=== PATIENT | female | born 1980 | race Asian ===

== ENCOUNTER 2021-01-22 17:39 | Emergency (ER) | payer SELFPAY ==
[2021-01-22 17:42] VITALS: BP 128/98; PULSE 92; RESP 16; TEMP 37; O2SAT 100
[2021-01-22 18:05] LABS: Basophils Absolute Auto 0.1 K/mm3 (0.0-0.1); Basophils Percent Auto 0.5 % (0.2-1.2); Eosinophils Absolute Auto 0.6 K/mm3 (0-0.3); Eosinophils Percent Auto 5.6 % (0-4.4); Hematocrit 40.3 % (37.0-47.0); Hemoglobin 13.6 g/dL (12.0-15.0); Immature Granulocyte Absolute 0.03 K/mm3 (0.00-0.031); Immature Granulocyte Percent A 0.3 % (0-0.5); Lymphocytes Absolute Auto 3.31 K/mm3 (0.9-3.2); Lymphocytes Percent Auto 32.8 % (18.3-44.2); Mean Corpuscular HGB Conc 33.7 g/dl (32-36); Mean Corpuscular Hemoglobin 29.4 pg (26-34); Mean Corpuscular Volume 87.2 fl (80-100); Mean Platelet Volume 9.3 fl (7.4-10.4); Monocytes Absolute Auto 0.7 K/mm3 (0.1-0.6); Monocytes Percent Auto 6.8 % (2.6-8.5); Neutrophils Absolute Auto 5.5 K/mm3 (1.3-6.7); Platelet Count Result 352 k/mm3 (150-375); Red Blood Count 4.62 M/mm3 (4.2-5.4); Red Cell Distribution Width 13.2 % (11.5-14.5); White Blood Count 10.1 K/mm3 (4.5-10.0)
--- NOTE | 2021-01-22 18:07 | ED.GENADULT ---
HPI - General Adult General Chief complaint: Psychiatric Symptoms <Rojas Hernandez PA-C - Last Filed: 01/22/21 21:50> Stated complaint: SI <GENTRY Hernández Last Filed: 01/22/21 21:50> Time Seen by Provider: 01/22/21 17:42 <GENTRY Hernández Last Filed: 01/22/21 21:50> Source: patient and RN notes reviewed <GENTRY Hernández Last Filed: 01/22/21 21:50> Mode of arrival: ambulatory <Rojas Hernandez PA-C - Last Filed: 01/22/21 21:50> Limitations: no limitations <GENTRY Hernández Last Filed: 01/22/21 21:50> History of Present Illness HPI narrative: Patient is a 32 female who presents with depression she lives by herself her parents live out of town she has few friends she called 911 today noting that she was having thoughts of wanting to harm herself she has a history of depression anxiety on arrival notes that she is feeling much better and does not feel suicidal at this time feels fine to go home patient denies any recent illness or other complaints. Patient denies any homicidal or current suicidal thoughts. Patient denies any history of self-harm <GENTRY Hernández Last Filed: 01/22/21 21:50> Related Data Allergies/adverse reactions: Allergies Allergy/AdvReac Type Severity Reaction Status Date / Time No Known Allergies Allergy Unverified 01/22/19 05:46 <GENTRY Hernández Last Filed: 01/22/21 21:50> Review of Systems Review of Systems: All systems reviewed & are unremarkable except as noted in HPI and below <GENTRY Hernández Last Filed: 01/22/21 21:50> [facility] Past Medical History Medical History: Medical History (Updated 01/24/21 @ 00:00 by Background Armani) Depression <GENTRY Hernández Last Filed: 01/22/21 21:50> Family History Family History: Family History (Updated 11/27/17 @ 12:37 by DOCTOR UNKNOWN) Father Family history of hypercholesterolemia Mother Hypertension Other Family history of malignant neoplasm of breast Family history of mental disorder <GENTRY Hernández Filed: 01/22/21 21:50> Social History Social History: Social History Smoking status: Never smoker Second hand tobacco smoke exposure: No Alcohol intake: never Substance use type: does not use <Rojas Hernandez PA-C - Last Filed: 01/22/21 21:50> Exam Narrative: GENERAL: Well-appearing, well-nourished, and in no acute distress. HEAD: Normocephalic, atraumatic. EYES: PERRLA and EOMI. ENT: Nares clear, no rhinorrhea or epistaxis. Mucous membranes moist. Oropharynx without tonsillar hypertrophy exudate or other lesions. Bilateral TMs pearly coe nonbulging NECK: Supple. No adenopathy or masses. No carotid bruits or JVD CHEST: Clear to auscultation. No respiratory distress. No wheezes rales or rhonchi HEART: Regular rate and rhythm. No murmur heard. Normal peripheral pulses. ABDOMEN: Soft, nontender, nondistended, normal active bowel sounds. EXTREMITIES: Normal range of motion. No edema. SKIN: Warm, dry, no rash. NEURO: No focal deficits. Alert and oriented x3. PSYCH: Normal mood and affect. <Rojas Hernandez PA-C - Last Filed: 01/22/21 21:50> Course Course Emergency Course: Patient evaluated by crisis felt appropriate for discharge home afebrile nontoxic-appearing resting comfortably in the room in no distress evaluated by myself and crisis felt appropriate for discharge home with close follow-up <Rojas Hernandez PA-C - Last Filed: 01/22/21 21:50> Reevaluation(s) Reevaluation #1: Patient evaluated by drying can worker. She is reporting auditory hallucinations and thoughts of self-harm. Not felt for discharge and will be made involuntary psych admit. I have filled out paperwork and placed on the chart. <William Murrieta MD - Last Filed: 01/22/21 23:57> Date: 01/22/21 <William Murrieta MD - Last
[2021-01-22 18:17] LABS: Alanine Aminotransferase 28 U/L (4-35); Albumin Level 4.3 g/dL (3.5-5.1); Alkaline Phosphatase 78 U/L (38-126); Anion Gap 8 mmol/L (8-16); Aspartate Amino Transferase 28 U/L (14-36); Bilirubin,Total 0.6 mg/dL (0.2-1.3); Blood Urea Nitrogen 14 mg/dL (7-17); Calcium 9.4 mg/dL (8.4-10.2); Carbon Dioxide 22 mmol/L (22-30); Chloride 107 mmol/L (98-107); Estimated CRCL calculation 96 ml/min; Estimated Glomerular Filt Rate > 60; Glucose 90 mg/dL (65-110); Potassium 4.1 mmol/L (3.4-5.0); Sodium 137 mmol/L (137-145)
[2021-01-22 18:18] LABS: Ethanol < 10 mg/dL (<10)
[2021-01-22 18:58] LABS: Creatine Kinase 54 U/L (30-135); Magnesium 1.9 mg/dL (1.6-2.3)
[2021-01-22 19:03] LABS: Add Urine Microscopic? YES; Appearance Urine Clear (Clear); Bacteria Urine Trace /hpf; Bilirubin Urine Negative (Negative); Blood Urine Negative (Negative); Color Urine Yellow (Yellow); Glucose Urine UA Negative (Negative); Ketones Urine Negative (Negative); Leukocyte Esterase Ur Trace LEU/UL (Negative); Mucus Urine Rare /lpf; Nitrate Urine Negative (Negative); Protein Urine Negative (Negative); RBC Urine 0-2 /hpf (0-2); Squamous Epithelial Cell Urine Many /hpf (Few); Urobilinogen Urine Negative mg/dL (<2.0)
[2021-01-22 19:14] LABS: Amphetamine Screen Urine Negative (Negative); Barbiturate Screen Urine Negative (Negative); Benzodiazepines Screen Urine Negative (Negative); Cannabinoid Screen Urine Negative (Negative); Cocaine Screen Urine Negative (Negative); Methadone Screen Urine Negative (Negative); Opiate Screen Urine Negative (Negative); Phencyclidine Screen Urine Negative (Negative)
--- NOTE | 2021-01-22 19:20 | PC.NURSE ---
Pt lying on stretcher c sitter at bedside. pt denies suicidal and homicidal ideations - past and present. Pt denies auditory or visual hallucinations. good eye contact. speech clear. updated on plan of care. will continue to monitor. Sitter present for elopement precautions. pt verbalizes wanting to go home, states I think I'm fine.
[2021-01-22 19:23] LABS: Acetaminophen < 10 ug/mL (10-30); Salicylate < 1.0 mg/dL (2-20)
--- NOTE | 2021-01-22 21:09 | PC.NURSE ---
Per studio operations engineer in charge Lore, Crisis sending counselor to ER to speak with pt. Will update pt on plan of care.
--- NOTE | 2021-01-22 22:03 | PC.NURSE ---
Counselor in pt room, interviewing pt.
--- NOTE | 2021-01-22 22:49 | ECG_ITS ---
Measurements Intervals [place] Rate: 66 P: 62 CO: 161 QRS: 81 QRSD: 100 T: 33 QT: 427 QTc: 450 Interpretive Statements SINUS RHYTHM BASELINE ARTIFACT- I, II NORMAL ECG Electronically Signed On 01-23-2021 7:36:41 CDT by Oseas Barillas D.O.
--- NOTE | 2021-01-22 22:59 | PC.NURSE ---
covid swab obtained and walked to lab.
--- NOTE | 2021-01-22 23:15 | PC.NURSE ---
Pt agreed to be swabbed for covid and ekg done. pt informed of her involuntary status. pt tearful at times. sitter at bedside.
[2021-01-22 23:28] LABS: EDCOVIDSCREEN Negative (Negative)
--- NOTE | 2021-01-23 00:57 | PC.NURSE ---
called [facility] for transport. ETA [id number]
--- NOTE | 2021-01-23 01:04 | PC.NURSE ---
[facility], [facility], [facility] not available.
[2021-01-23 01:19] VITALS: BP 112/83; PULSE 76; RESP 20; O2SAT 98
--- NOTE | 2021-01-23 01:20 | PC.NURSE ---
EMS ETA [id number].
--- NOTE | 2021-01-23 03:08 | PC.NURSE ---
awaiting ems transport. pt intermittently tearful and afraid. sitter present. pt made involuntary psychiatric admit after crisis shuttle repairer interviewed pt. pt continues to deny SI/HI or hallucinations for this RN.
--- NOTE | 2021-01-23 03:29 | PC.NURSE ---
Patient requesting nicotine patch, she smokes approx 1/2 ppd. ERP notified, verbal orders received.
[2021-01-23] MEDS: NICOTINE (*PBKC) 14 MG PATCH 1 PATCH TRANSDERM (03:34)
--- NOTE | 2021-01-23 04:14 | PC.NURSE ---
called [facility] for ETA update. ETA [id number]
--- NOTE | 2021-01-23 05:47 | PC.NURSE ---
[facility] here.
[2021-01-23 06:00] VITALS: BP 120/87; PULSE 80; RESP 20; TEMP 36.7; O2SAT 99
== END 2021-01-23 06:01 ==
PROVIDERS: Emergency Medicine Emergency Medical Services; Emergency Provider Emergency Medicine
DX: R45.851 Suicidal ideations (principal); F32.9 Major depressive disorder, single episode, unspecified; Z20.822 Contact with and (suspected) exposure to COVID-19
CPT/HCPCS: 36415; 80053; 80307; 81001; 81025; 82550; 83735; 84443; 85025; 87426; 93005; 99284; 99285; A9270; C9803

== ENCOUNTER 2021-01-30 20:03 | Emergency (ER) | payer SELFPAY ==
--- NOTE | 2021-01-30 20:12 | PC.NURSE ---
emergency contact for pt: Linda (friend) - [phone] pt gave this RN permission to give friend any updates.
[2021-01-30 20:16] VITALS: BP 116/85; PULSE 87; RESP 16; TEMP 36.2; O2SAT 100
[2021-01-30 21:50] VITALS: BP 132/84; PULSE 92; RESP 16; O2SAT 99
[2021-01-30 23:32] VITALS: BP 124/79; PULSE 77; RESP 18; O2SAT 99
--- NOTE | 2021-01-30 23:44 | ED.GENADULT ---
HPI - General Adult General Chief complaint: Unspecified Stated complaint: dizzy, nausea, eye rolling Time Seen by Provider: 01/30/21 23:27 Source: patient Mode of arrival: ambulatory Limitations: no limitations History of Present Illness HPI narrative: 40-year-old female Patient was just hospitalized at [facility] for treatment of schizophrenia and anxiety Just before she was discharged she was given an Invega Sustenna shot She is here tonight because she is having some intermittent, troubling which feel like her eyes are shooting upward uncontrollably She also describes less bothersome symptoms like a sensation of being squeezed in on She says she had been having visual hallucinations and they have stopped she continues to have some auditory hallucinations which do not bother her very much Related Data Home Medications Medication Instructions Recorded Confirmed paliperidone palmitate [Invega 156 mg IM Q30D 01/30/21 01/30/21 Sustenna] Allergies Allergy/AdvReac Type Severity Reaction Status Date / Time No Known Allergies Allergy Verified 01/30/21 20:15 Review of Systems Eyes: Eyes: Reports change in vision and Reports other visual disturbances Cardiovascular: Cardiovascular: Denies chest pain Respiratory: Respiratory: Denies cough and Denies dyspnea Psychiatric: Psychiatric: Reports auditory hallucinations, Denies visual hallucinations and Denies suicidal ideation [facility] Past Medical History Medical History (Updated 01/30/21 @ 23:48 by Justin Temple MD) Depression Family History Family History (Updated 11/27/17 @ 12:37 by DOCTOR UNKNOWN) Father Family history of hypercholesterolemia Mother Hypertension Other Family history of malignant neoplasm of breast Family history of mental disorder Social History Social History Smoking status: Never smoker Second hand tobacco smoke exposure: No Alcohol intake: never Substance use type: does not use Gender identity (if verbalized by the patient): Female Exam Const: General: cooperative and healthy appearing Orientation/consciousness: patient oriented x3 (alert) HENMT: Head: normal to inspection, normocephalic and atraumatic Ears: external ears normal Eyes: Conjunctivae: conjunctivae normal EOM: EOMs intact bilaterally, no movement deficit and No Nystagmus present Neck: Neck: normal visual inspection, supple and no JVD Resp: Effort & Inspection: normal respiratory effort and not labored Auscultation: clear to auscultation bilaterally, no rales, no rhonchi and no wheezes Cardio: Rate: regular rate Rhythm: regular rhythm Heart sounds: no murmurs Psych: Appearance: well kempt Affect: normal affect Attitude: cooperative Thought process: Normal thought process present Course Vital Signs Vital signs: Vital Signs Temperature 36.2 C L 01/30/21 20:16 Pulse Rate 87 01/30/21 20:16 Respiratory Rate 16 01/30/21 20:16 Blood Pressure 116/85 01/30/21 20:16 Pulse Oximetry 100 01/30/21 20:16 Temperature 36.2 C L 01/30/21 20:16 Pulse Rate 77 01/30/21 23:32 Respiratory Rate 18 01/30/21 23:32 Blood Pressure 124/79 01/30/21 23:32 Pulse Oximetry 99 01/30/21 23:32 Medical Decision Making Vital Signs Vital Signs: Vital Signs Temperature 36.2 C L 01/30/21 20:16 Pulse Rate 87 01/30/21 20:16 Respiratory Rate 16 01/30/21 20:16 Blood Pressure 116/85 01/30/21 20:16 Pulse Oximetry 100 01/30/21 20:16 Temperature 36.2 C L 01/30/21 20:16 Pulse Rate 77 01/30/21 23:32 Respiratory Rate 18 01/30/21 23:32 Blood Pressure 124/79 01/30/21 23:32 Pulse Oximetry 99 01/30/21 23:32 Discharge Plan Discharge Clinical Impression: Dystonic drug reaction Patient Disposition: Home, Self-Care Condition: Stable Additional Instructions: Take benztropine 1/2 tablet (0.5 mg) twice a day This could be increas
[2021-01-31 00:08] VITALS: BP 102/85; PULSE 73; RESP 17; O2SAT 100
== END 2021-01-31 00:09 | disposition home or self-care (01) ==
PROVIDERS: Emergency Provider Emergency Medicine
DX: G24.09 Other drug induced dystonia (principal); T43.595A Adverse effect of other antipsychotics and neuroleptics, initial encounter; F20.9 Schizophrenia, unspecified; F41.9 Anxiety disorder, unspecified
CPT/HCPCS: 99281

== ENCOUNTER 2021-04-08 13:00 | Outpatient (CLI) | payer OTHER, SELFPAY ==
--- NOTE | ~2021-04-08 | US_ITS ---
EXAMINATION: US guide abscess drainage DATE: 04/10/2021 09:18 CDT INDICATION: Left breast abscess TECHNIQUE: Survey imaging of the left breast was performed. The fluid collection at the 3:00 positio n were targeted for aspiration. The procedure and its risk and benefits were discussed with the darryl ent. Risks included but were not limited to pain, bleeding and infection. The patient verbalized und erstanding and provided written consent. A time-out was performed to document the patient's name, date of , and site of procedure. The l eft outer aspect of the patient's left breast was prepped and draped in usual sterile fashion. 1% li docaine was used for local anesthesia. Utilizing ultrasound guidance, a 18-gauge needle was advanced into the complex fluid collection. Aspiration was performed. The patient tolerated procedure without immediate complication. Sterile bandages were applied over t he aspiration site(s).] FINDINGS: 23 cc of brownish discolored fluid was obtained and delivered to laboratory for appropriate testing as indicated by the clinical service. Fluid collection measured 6.7 x 5.5 x 3 cm predrainage and 3.7 x 2.5 x 2 cm postdrainage. IMPRESSION: 1. Successful ultrasound-guided drainage of abscess. 23 cc of fluid obtained without complication an d delivered to the laboratory for appropriate evaluation as indicated by the clinical service. Reviewed, dictated and finalized at location A. IMPRESSION: 1. Successful ultrasound-guided drainage of abscess. 23 cc of fluid obtained w ithout complication and delivered to the laboratory for appropriate evaluation as indicated by the clinical service.
== END 2021-04-08 13:01 | disposition home or self-care (01) ==
LOC: ANHIMG 13:04
PROVIDERS: Visit Provider Surgery
DX: N61.1 Abscess of the breast and nipple (principal)
CPT/HCPCS: 10160; 76942; 87070; 87075; 87205

== ENCOUNTER 2021-04-15 08:49 | Outpatient (CLI) | payer OTHER, SELFPAY ==
--- NOTE | ~2021-04-15 | US_ITS ---
US breast LT limited DATE: 04/15/2021 09:11 INDICATION: Left breast abscess TECHNIQUE: High-resolution ultrasound imaging and color flow imaging and area of clinical complaint a t 1-2:00 COMPARISON: 04/08/2021 ultrasound-guided left breast abscess drainage FINDINGS: At 1-2:00 area at site of recently percutaneously drained breast abscess is an irregular th ick-walled residual approximately 2.4 x 4.9 x 5.2 cm abscess with up to approximately 11 x 20 mm cent ral fluid collection, surrounding increased vascularity consistent with inflammation. This abscess pr eviously measured up to 6.7 x 3 x 5.5 cm dimension on 04/08/2021. IMPRESSION: Residual although smaller abscess at 1-2:00 Reviewed, dictated and finalized at Location A. Reviewed, dictated and finalized at location A.
== END 2021-04-15 08:50 | disposition home or self-care (01) ==
LOC: ANHIMG 08:50
PROVIDERS: Visit Provider Surgery
DX: N61.1 Abscess of the breast and nipple (principal)
CPT/HCPCS: 76642

== ENCOUNTER 2021-05-14 14:30 | Outpatient (CLI) | payer OTHER, SELFPAY ==
--- NOTE | ~2021-05-14 | US_ITS ---
EXAMINATION: US breast LT limited HISTORY: Follow-up for left breast abscess TECHNIQUE: High-resolution ultrasound of the left breast performed at the 3:00 location and near the nipple. COMPARISON: 04/15/2021 FINDINGS: There is a persistent 5.6 x 2.6 cm irregular hypoechoic mass at the 3:00 location 5 cm from the nipple with posterior acoustic enhancement and peripheral vascularity. There has been little int erval change in size. No discrete drainable component is identified. IMPRESSION: Findings consistent with persistent left breast abscess without identifiable drainable component. BI-RADS Category 2: Benign finding(s). Reviewed, dictated and finalized at location A. CAL SCHEDULER IMPRESSION: Findings consistent with persistent left breast abscess without identifiable dr ainable component. BI-RADS Category 2: Benign finding(s).
== END 2021-05-14 14:31 | disposition home or self-care (01) ==
LOC: ANHIMG 14:35
PROVIDERS: Visit Provider Surgery
DX: N61.1 Abscess of the breast and nipple (principal)
CPT/HCPCS: 76642